=== PATIENT | female | born 1990 | race Caucasian/White ===

== ENCOUNTER 2021-03-17 22:55 | Inpatient (IN) | payer OTHER ==
[2021-03-18] MEDS ORDERED: ELECTROLYTE-148 SOLN 1,000 ML IV SCH (00:10)
[2021-03-18 00:45] LABS: BASO % 0.7 % (0-2.0); EOS % 0.8 % (0-4.5); HEMATOCRIT 37.4 % (32.4-45.2); HEMOGLOBIN 12.9 GM/dL (10.7-15.3); LYMPH % 19.5 % (8-40); MCH 32.1 pg (25.7-33.7); MCHC 34.6 g/dl (32.0-36.0); MEAN CELL VOLUME 92.9 fl (80-96); MEAN PLT VOLUME 8.8 fl (7.5-11.1); MONO % 6.9 % (3.8-10.2); NEUT % 72.1 % (42.8-82.8); PLATELET COUNT 223 10^3/uL (134-434); RBC 4.03 M/mm3 (3.60-5.2); WHITE BLOOD COUNT 11.1 K/mm3 (4.0-10.0)
[2021-03-18 00:46] LABS: RETICULOCYTES 2.46 % (0.5-1.5)
[2021-03-18] MEDS ORDERED: TERBUTALINE SULFATE 1 MG/1 ML VIAL SQ ONE ×2 (00:58→03:19)
[2021-03-18 01:02] LABS: CALCIUM 9.2 mg/dL (8.5-10.1); INR 0.87 (0.83-1.09); PROTHROMBIN TIME (PATIENT) 10.6 SEC (9.7-13.0)
[2021-03-18 01:03] LABS: BLOOD UREA NITROGEN 14.5 mg/dL (7-18)
[2021-03-18 01:05] LABS: ACTIVATED PTT 28.2 SECONDS (25.2-36.5)
[2021-03-18 01:06] LABS: CREATININE 0.6 mg/dL (0.55-1.3); URIC ACID 4.5 mg/dL (2.6-7.2)
[2021-03-18 01:06] LABS: EPI CELLS >36 /uL (0-25.1); HYALINE CASTS 3 /uL (0-3.1); PH,URINE 6.5 (5.0-8.0); URINE APPEARANCE CLOUDY; URINE BACTERIA 1704 /uL (0-1359); URINE BILIRUBIN NEGATIVE (NEGATIVE); URINE COLOR YELLOW; URINE GLUCOSE (UA) NEGATIVE (NEGATIVE); URINE KETONE NEGATIVE (NEGATIVE); URINE LEUK ESTERASE 3+ (NEGATIVE); URINE NITRITE NEGATIVE (NEGATIVE); URINE PROTEIN NEGATIVE (NEGATIVE); URINE RBC 9 /uL (0-23.9); URINE UROBILINOGEN 0.2 mg/dL (0.2-1.0); URINE WBC 331 /uL (0-25.8)
[2021-03-18 01:25] VITALS: BMI 39.6
[2021-03-18] MEDS ORDERED: FENTANYL/BUPIVACAINE/NS/PF - PCEA - 50 ML DISP.SYRIN EP ONE (02:56)
[2021-03-18] MEDS ORDERED: NALOXONE HCL 0.4 MG/ML VIAL IVPUSH PRN (02:57)
[2021-03-18] MEDS: FENTANYL/BUPIVACAINE/NS/PF - PCEA - 50 ML DISP.SYRIN EP SCH (03:15)
[2021-03-18] MEDS ORDERED: CITRIC ACID/SODIUM CITRATE 30 ML UNIT-DOSE CUP PO ONE (03:21)
[2021-03-18] MEDS ORDERED: OXYTOCIN 30 UNITS in 0.9% NS 30 UNIT/500 ML INFUS.BAG IVPB SCH (03:45)
[2021-03-18] MEDS ORDERED: LIDOCAINE HCL/EPINEPHRINE/PF 10 ML VIAL ONE (04:31)
[2021-03-18] MEDS ORDERED: ceFAZolin SODIUM 1 GM VIAL ONE (04:41)
[2021-03-18] MEDS ORDERED: morphine SULFATE/PF 0.5 MG/ML (2cc Syringe - QUVA) ONE ×2 (05:05)
[2021-03-18] MEDS ORDERED: METHYLERGONOVINE MALEATE 0.2 MG/1 ML AMP IM PRN (05:55)
[2021-03-18] MEDS ORDERED: OXYTOCIN 20 UNITS in 0.9% NS 20 UNIT/1,000 ML INFUS.BAG IV ONE (08:23)
[2021-03-18] MEDS: IBUPROFEN 600 MG TABLET (FP) PO PRN ×2 (18:44→21:02)
[2021-03-19] MEDS: diphenhydrAMINE HCL 25 MG CAPSULE (FP) PO PRN ×2 (01:39→23:20)
[2021-03-19] MEDS: IBUPROFEN 600 MG TABLET (FP) PO PRN ×4 (01:40→20:37)
[2021-03-19] MEDS ORDERED: BISACODYL 10 MG SUPP.RECT RC PRN (05:55)
[2021-03-19] MEDS: FENTANYL/BUPIVACAINE/NS/PF - PCEA - 50 ML DISP.SYRIN EP SCH (08:42)
[2021-03-19 09:08] LABS: BASO % 0.2 % (0-2.0); EOS % 0.8 % (0-4.5); HEMOGLOBIN 10.7 GM/dL (10.7-15.3); LYMPH % 13.1 % (8-40); MCH 32.2 pg (25.7-33.7); MCHC 34.6 g/dl (32.0-36.0); MEAN CELL VOLUME 92.9 fl (80-96); MEAN PLT VOLUME 8.2 fl (7.5-11.1); MONO % 8.5 % (3.8-10.2); NEUT % 77.4 % (42.8-82.8); PLATELET COUNT 222 10^3/uL (134-434); RBC 3.34 M/mm3 (3.60-5.2); RDW 14.2 % (11.6-15.6); WHITE BLOOD COUNT 8.8 K/mm3 (4.0-10.0)
[2021-03-19] MEDS: SIMETHICONE 80 MG TAB.CHEW (FP) PO PRN ×3 (09:34→20:37)
[2021-03-19] MEDS: ACETAMINOPHEN 500 MG TABLET (FP) PO PRN (23:20)
[2021-03-20] MEDS: SIMETHICONE 80 MG TAB.CHEW (FP) PO PRN ×2 (05:51→09:15)
[2021-03-20] MEDS: IBUPROFEN 600 MG TABLET (FP) PO PRN (05:51)
[2021-03-20 08:50] VITALS: BP 116/77; PULSE 83; TEMP 98.3
[2021-03-20] MEDS: ACETAMINOPHEN 500 MG TABLET (FP) PO PRN (09:15)
== END 2021-03-20 12:45 | disposition home or self-care (01) | DRG 540 ==
LOC: JDEL 22:55 → JLDR 23:40 → J3W 03-18 08:45
PROVIDERS: ADMIT Specialist; ATTEND Specialist
PROC: 10D00Z1 Extraction of Products of Conception, Low, Open Approach (ICD-10-PCS; principal; 2021-03-18)
PROC: 3E0334Z Introduction of Serum, Toxoid and Vaccine into Peripheral Vein, Percutaneous Approach (ICD-10-PCS; 2021-03-18)
DX: O36.8330 Maternal care for abnormalities of the fetal heart rate or rhythm, third trimester, not applicable or unspecified (principal); Z3A.38 38 weeks gestation of pregnancy; Z29.13 Encounter for prophylactic Rho(D) immune globulin; Z37.0 Single live birth
CPT/HCPCS: 36415; 80048; 81003; 82977; 83010; 84450; 84460; 84550; 85025; 85032; 85045; 85461; 85610; 85730; 86780; 86850; 86900; 86901; 86999; C9803; U0003; U0005